=== PATIENT | female | born 1950 | race Caucasian/White ===

== ENCOUNTER 2018-12-12 15:59 | Emergency (ER) | payer OTHER ==
[~2018-12-12] VITALS: Ht 149.9 cm; Wt 59.0 kg
[2018-12-12 17:08] LABS: Urine WBC None Seen /hpf (0 - 5)
[2018-12-12 17:26] LABS: Urine Bacteria NONE SEEN /hpf (None Seen); Urine Blood Negative /uL (Negative); Urine Specific Gravity 1.005 (1.001-1.035)
[2018-12-12 17:34] LABS: Alcohol, Urine < 3.0 mg/dL (0-5); Amphetamine Screen, Urine NEGATIVE (NEGATIVE); Barbiturate Scree,Urine NEGATIVE (NEGATIVE); Benzodiazephine Screen, Urine NEGATIVE (NEGATIVE); Cannabinoid Screen, Urine NEGATIVE (NEGATIVE); Cocaine Screen, Urine NEGATIVE (NEGATIVE); Opiate Scree,Urine NEGATIVE (NEGATIVE); Phencyclidine Screen, Urine NEGATIVE (NEGATIVE)
[2018-12-12 17:54] LABS: Basophils # (auto) 0.1 uL; Basophils % (auto) 0.7 % (0.0-2.0); Eosinophils # (auto) 0 uL; Eosinophils % (auto) 0.2 % (0.0-7.0); Hematocrit 38.3 % (36.0-46.0); Hemoglobin 12.8 g/dL (12.2-16.2); Lymphocytes # (auto) 1.2 uL; Lymphocytes % (auto) 17.7 % (10.0-50.0); Mean Corpuscular Hemoglobin 28.1 pg (28.0-32.0); Mean Corpuscular Hgb Conc. 33.4 g/dL (32.0-36.0); Mean Corpuscular Volume 84.1 fL (80.0-100.0); Monocytes # (auto) 0.3 uL; Monocytes % (auto) 3.7 % (0.0-12.0); Neutrophils # (auto) 5.3 uL; Neutrophils % (auto) 77.7 % (37.0-80.0); Platelet Count (auto) 293 10^3/uL (140-450); Red Blood Cells 4.55 10^6/uL (4.0-5.20); Red Cell Distribution Width 14.8 % (11.8-14.3); White Blood Cell 6.9 10^3/uL (4.4-10.8)
[2018-12-12 18:09] LABS: INR 0.95 (0.9-1.15); Partial Thromboplastin Time 29.2 sec (23.64-32.05)
[2018-12-12 18:11] LABS: Alanine Aminotransferase 20 U/L (13-56); Albumin 4.1 g/dL (3.4-5.0); Anion Gap 6 (5-15); Aspartate Aminotransferase 23 U/L (15-37); BUN/Creatinine Ratio 16.2; Blood Alcohol < 3.0 mg/dL (0-5); Blood Urea Nitrogen 11 mg/dL (7-18); Calcium 9.4 mg/dL (8.5-10.1); Carbon Dioxide 28 mmol/L (21-32); Chloride 101 mmol/L (98-107); GFR African American 110 mL/min; GFR Non-African American 91 mL/min; Glucose 114 mg/dL (74-106); Potassium 3.8 mmol/L (3.5-5.1); Sodium 135 mmol/L (136-145)
[2018-12-12 18:15] LABS: Alkaline Phosphatase 70 U/L (45-117); Bilirubin, Total 0.4 mg/dL (0.2-1.0); Total Protein 7.7 g/dL (6.4-8.2)
[2018-12-12 23:00] VITALS: BP 106/61
== END 2018-12-13 00:55 | disposition home or self-care (01) ==
LOC: ER 15:59 → EDBD 15:59 → ER 12-13 00:55
DX: T59.91XA Toxic effect of unspecified gases, fumes and vapors, accidental (unintentional), initial encounter (principal); R55 Syncope and collapse; R42 Dizziness and giddiness; Z88.6 Allergy status to analgesic agent; Y92.9 Unspecified place or not applicable
CPT/HCPCS: 36415; 36600; 71045; 80053; 80307; 80320; 81001; 82805; 82962; 83880; 84484; 85025; 85610; 85730; 93005; 94761

== ENCOUNTER 2021-09-26 12:10 | Inpatient (IN) | payer OTHER ==
[~2021-09-26] VITALS: Ht 149.9 cm; Wt 65.1 kg
[2021-09-26] MEDS ORDERED: SODIUM CHLORIDE 0.9% 1,000 ML IVB ONE (12:30)
[2021-09-26] MEDS ORDERED: MIDAZOLAM HCL 2MG/2ML 2ml VIAL (1mg/ml) IV ONE (12:45)
[2021-09-26] MEDS ORDERED: DEXTROSE (50%) 50ML SYRG IV ONE (12:45)
[2021-09-26] MEDS ORDERED: DIGOXIN (250MCG/ML) 2 ML AMPULE IV ONE (12:45)
[2021-09-26] MEDS ORDERED: SODIUM CHLORIDE 0.9% 1,000 ML IV ONE (13:15)
[2021-09-26] MEDS ORDERED: PHENYLEPHRINE IV 250 ML IV ONE (13:15)
[2021-09-26 13:28] LABS: Basophils # (auto) 0.1 10 ^3/uL (0-0.2); Basophils % (auto) 1.3 % (0.0-2.0); Eosinophils # (auto) 0 10 ^3/uL (0-0.8); Eosinophils % (auto) 0.5 % (0.0-7.0); Hematocrit 28.5 % (36.0-46.0); Hemoglobin 9.3 g/dL (12.2-16.2); Lymphocytes # (auto) 1.8 10 ^3/uL (0.4-5.4); Lymphocytes % (auto) 25.5 % (10.0-50.0); Mean Corpuscular Hgb Conc. 32.7 g/dL (32.0-36.0); Mean Corpuscular Volume 82.8 fL (80.0-100.0); Monocytes # (auto) 0.2 10 ^3/uL (0-1.3); Monocytes % (auto) 3.5 % (0.0-12.0); Neutrophils # (auto) 4.8 10 ^3/uL (1.6-8.6); Neutrophils % (auto) 69.2 % (37.0-80.0); Nucleated Red Blood Cells % 0.1 %; Red Blood Cells 3.45 10^6/uL (4.0-5.20); White Blood Cell 6.9 10^3/uL (4.4-10.8)
[2021-09-26 13:42] LABS: INR 1.27 (0.9-1.15); Partial Thromboplastin Time 26.8 sec (23.6-33.0)
[2021-09-26 13:49] LABS: Potassium 3.4 mmol/L (3.5-5.1)
[2021-09-26 13:53] LABS: Albumin 2.6 g/dL (3.4-5.0); BUN/Creatinine Ratio 14.5; Calcium 7.8 mg/dL (8.5-10.1)
[2021-09-26 13:58] LABS: Bilirubin, Total 0.4 mg/dL (0.2-1.0); Total Protein 4.9 g/dL (6.4-8.2)
[2021-09-26] MEDS ORDERED: ENOXAPARIN SOD 100 MG/1 ML SYRINGE SC ONE (14:15)
[2021-09-26] MEDS ORDERED: NITROGLYCERIN 0.4 MG SL TAB SL PRN ×2 (14:30→16:00)
[2021-09-26] MEDS ORDERED: AMIODARONE HCL 200 MG TAB PO ONE (14:30)
[2021-09-26] MEDS ORDERED: POTASSIUM CHL 20 Meq TABLET PO ONE (14:30)
[2021-09-26] MEDS ORDERED: MORPHINE SULFATE INJECTION 2 MG/ML SYRG IV PRN ×2 (14:30→16:00)
[2021-09-26] MEDS ORDERED: ASPirin 81 mg TAB PO ONE (15:15)
[2021-09-26] MEDS ORDERED: ENOXAPARIN SOD 30 MG/0.3 ML SYRINGE SC ONE (15:15)
[2021-09-26] MEDS ORDERED: HYDROcodone-ACET 5/325MG TAB PO ONE (16:00)
[2021-09-26 16:11] LABS: Cholesterol 82 mg/dL (< 200)
[2021-09-26 16:14] LABS: HDL Cholesterol 37 mg/dL (40-59); LDL Cholesterol 38 mg/dL (< 100); Triglycerides 93 mg/dL (< 150)
[2021-09-26] MEDS ORDERED: OXYCODONE W/ ACETAMINOPHEN 5/325MG TABLET PO ONE (16:30)
[2021-09-26 20:00] VITALS: BP 109/58
[2021-09-26 20:33] VITALS: BP 109/58
[2021-09-26] MEDS ORDERED: PERCOT PO (21:04)
[2021-09-26] MEDS ORDERED: LEVO88TA4 PO (21:04)
[2021-09-26] MEDS: ACETAMINOPHEN 325 MG TAB PO PRN (21:30)
[2021-09-26] MEDS: AMIODARONE HCL 200 MG TAB PO SCH (21:30)
[2021-09-26 22:00] VITALS: BP 131/63
[2021-09-26 23:15] LABS: Magnesium 1.9 mg/dL (1.6-2.6); Phosphorus 3.6 mg/dL (2.5-4.90)
[2021-09-27 00:33] LABS: INR 1.22 (0.9-1.15); Partial Thromboplastin Time 30.5 sec (23.6-33.0)
[2021-09-27 05:00] VITALS: BP 128/66
[2021-09-27] MEDS: ACETAMINOPHEN 325 MG TAB PO PRN (05:28)
[2021-09-27] MEDS ORDERED: METOPROLOL SUCCINATE XL 50 MG TAB PO ONE (06:30)
[2021-09-27] MEDS ORDERED: ATORVASTATIN 20 MG TAB PO ONE (06:30)
[2021-09-27] MEDS ORDERED: ACETAMINOPHEN 325 MG TAB PO PRN (06:45)
[2021-09-27] MEDS ORDERED: hydrALAZINE HCL 20 MG/ML VL IV PRN (06:45)
[2021-09-27] MEDS ORDERED: FERROUS SULFATE 325mg EC TAB PO ONE (06:45)
[2021-09-27] MEDS ORDERED: LORazepam 0.5 MG TAB PO PRN (06:45)
[2021-09-27] MEDS ORDERED: PANTOPRAZOLE 40 MG/10 ML VIAL INJ IV ONE (06:45)
[2021-09-27] MEDS ORDERED: LACTULOSE 20Gm/30ML SOLN PO PRN (06:45)
[2021-09-27] MEDS ORDERED: POTASSIUM CHL 20 Meq TABLET PO ONE (06:45)
[2021-09-27] MEDS ORDERED: HYDROcodone-ACET 5/325MG TAB PO ONE (06:45)
[2021-09-27] MEDS ORDERED: ONDANSETRON HCL 4 MG/2 ML VIAL IV PRN (06:45)
[2021-09-27] MEDS ORDERED: MORPHINE SULFATE INJECTION 2 MG/ML SYRG IV PRN (06:45)
[2021-09-27] MEDS ORDERED: IPRATROPIUM BROM 0.5 MG/2.5ML INH SOL NEB ONE (06:45)
[2021-09-27] MEDS ORDERED: DOCUSATE SOD 100 MG CAP PO PRN (06:45)
[2021-09-27] MEDS ORDERED: IOHEXOL 350 MG/ML 100ML IJ ONE (06:46)
[2021-09-27 06:49] LABS: Basophils # (auto) 0 10 ^3/uL (0-0.2); Basophils % (auto) 0.6 % (0.0-2.0); Eosinophils # (auto) 0 10 ^3/uL (0-0.8); Eosinophils % (auto) 0.8 % (0.0-7.0); Hemoglobin 9.5 g/dL (12.2-16.2); Lymphocytes # (auto) 1.3 10 ^3/uL (0.4-5.4); Lymphocytes % (auto) 27.4 % (10.0-50.0); Mean Corpuscular Hemoglobin 27.8 pg (28.0-32.0); Mean Corpuscular Volume 81.8 fL (80.0-100.0); Monocytes # (auto) 0.3 10 ^3/uL (0-1.3); Monocytes % (auto) 6.5 % (0.0-12.0); Neutrophils % (auto) 64.7 % (37.0-80.0); Red Blood Cells 3.42 10^6/uL (4.0-5.20); Red Cell Distribution Width 16.9 % (11.8-14.3); White Blood Cell 4.7 10^3/uL (4.4-10.8)
[2021-09-27 06:52] LABS: INR 1.17 (0.9-1.15); Partial Thromboplastin Time 30.9 sec (23.6-33.0)
[2021-09-27] MEDS: LEVOTHYROXINE SODIUM 88 MCG TAB PO SCH (06:58)
[2021-09-27 07:03] LABS: % Iron Saturation 8.2 % (15-50)
[2021-09-27 07:08] LABS: Urine Bacteria FEW /hpf (None Seen); Urine Blood Negative /uL (Negative); Urine WBC 6 /hpf (0 - 5)
[2021-09-27 07:14] LABS: Alanine Aminotransferase 29 U/L (13-56); Albumin 2.9 g/dL (3.4-5.0); Alkaline Phosphatase 48 U/L (45-117); Aspartate Aminotransferase 51 U/L (15-37); Bilirubin, Total 0.3 mg/dL (0.2-1.0); Blood Urea Nitrogen 9 mg/dL (7-18); CRP High Sensitivity 0.28 mg/dL (< 0.3); Calcium 8.2 mg/dL (8.5-10.1); Carbon Dioxide 23 mmol/L (21-32); Cholesterol 85 mg/dL (< 200); Creatine Kinase IFCC 428 U/L (26-192); GFR African American 145 mL/min; GFR Non-African American 120 mL/min; Glucose 84 mg/dL (74-106); HDL Cholesterol 42 mg/dL (40-59); LDL Cholesterol 35 mg/dL (< 100); Lipase 82 U/L (73-393); Magnesium 2.1 mg/dL (1.6-2.6); Total Protein 5.5 g/dL (6.4-8.2); Triglycerides 52 mg/dL (< 150); Uric Acid 4.3 mg/dL (2.6-6.0)
[2021-09-27 07:24] LABS: Alcohol, Urine < 3.0 mg/dL (0-10); Amphetamine Screen, Urine NEGATIVE (NEGATIVE); Barbiturate Scree,Urine NEGATIVE (NEGATIVE); Benzodiazephine Screen, Urine POSITIVE (NEGATIVE); Cannabinoid Screen, Urine NEGATIVE (NEGATIVE); Cocaine Screen, Urine NEGATIVE (NEGATIVE); Opiate Scree,Urine NEGATIVE (NEGATIVE); Phencyclidine Screen, Urine NEGATIVE (NEGATIVE); Protein, Urine 9.9 mg/dL (0.0-11.9)
[2021-09-27 07:30] LABS: Sodium 139 mmol/L (136-145)
[2021-09-27 07:31] LABS: Anion Gap 5 (5-15); Chloride 111 mmol/L (98-107); Potassium 4.1 mmol/L (3.5-5.1)
[2021-09-27] MEDS ORDERED: ADENOSINE 53 MG in GIVE UN-DILUTED 0 ML IV STA (07:41)
[2021-09-27] MEDS: AMIODARONE HCL 200 MG TAB PO SCH ×2 (10:00→21:48)
[2021-09-27] MEDS: CHOLECALCIFEROL (VITD3) 2,000 UNIT CAP/TAB PO SCH (10:00)
[2021-09-27] MEDS ORDERED: ENOXAPARIN SOD 30 MG/0.3 ML SYRINGE SC SCH (10:00)
[2021-09-27] MEDS: ENOXAPARIN SOD 60 MG/0.6 ML SYRINGE SC SCH ×2 (10:00→21:48)
[2021-09-27] MEDS ORDERED: ASPirin 81 mg TAB PO SCH (10:00)
[2021-09-27] MEDS ORDERED: POTASSIUM CHL 20 Meq TABLET PO SCH (10:00)
[2021-09-27] MEDS: PANTOPRAZOLE 40 MG/10 ML VIAL INJ IV SCH (10:00)
[2021-09-27] MEDS: FERROUS SULFATE 325mg EC TAB PO SCH ×2 (12:00→19:23)
[2021-09-27] MEDS ORDERED: HYDROcodone-ACET 5/325MG TAB PO PRN (12:00)
[2021-09-27] MEDS: IPRATROPIUM BROM 0.5 MG/2.5ML INH SOL NEB SCH ×2 (12:00→15:03)
[2021-09-27 13:00] VITALS: BP 126/62
[2021-09-27] MEDS ORDERED: cefTRIAXone 1GM/50ML D5W 50 ML IV ONE (13:30)
[2021-09-27] MEDS: HYDROcodone-ACET 5/325MG TAB PO PRN ×2 (14:55→17:43)
[2021-09-27 15:58] VITALS: BP 126/62
[2021-09-27 17:00] VITALS: BP 115/63
[2021-09-27] MEDS: SODIUM CHLORIDE 0.9% 1,000 ML IV SCH (20:30)
[2021-09-27 22:00] VITALS: BP 105/54
[2021-09-27] MEDS ORDERED: ATORVASTATIN 20 MG TAB PO SCH ×2 (22:00)
[2021-09-28] MEDS: HYDROcodone-ACET 5/325MG TAB PO PRN ×3 (01:42→17:15)
[2021-09-28 05:00] VITALS: BP 112/59
[2021-09-28 05:33] LABS: Basophils # (auto) 0 10 ^3/uL (0-0.2); Eosinophils # (auto) 0.1 10 ^3/uL (0-0.8); Eosinophils % (auto) 2.1 % (0.0-7.0); Hematocrit 25.7 % (36.0-46.0); Hemoglobin 8.6 g/dL (12.2-16.2); Lymphocytes # (auto) 2.1 10 ^3/uL (0.4-5.4); Lymphocytes % (auto) 45.1 % (10.0-50.0); Mean Corpuscular Hemoglobin 27.7 pg (28.0-32.0); Mean Corpuscular Hgb Conc. 33.7 g/dL (32.0-36.0); Mean Corpuscular Volume 82.4 fL (80.0-100.0); Monocytes # (auto) 0.4 10 ^3/uL (0-1.3); Monocytes % (auto) 9.5 % (0.0-12.0); Neutrophils # (auto) 1.9 10 ^3/uL (1.6-8.6); Neutrophils % (auto) 42.3 % (37.0-80.0); Nucleated Red Blood Cells % 0.1 %; Red Blood Cells 3.11 10^6/uL (4.0-5.20); Red Cell Distribution Width 17.2 % (11.8-14.3); White Blood Cell 4.6 10^3/uL (4.4-10.8)
[2021-09-28 05:45] LABS: Albumin 2.7 g/dL (3.4-5.0); BUN/Creatinine Ratio 14.8; Bilirubin, Total 0.2 mg/dL (0.2-1.0); Calcium 7.8 mg/dL (8.5-10.1); Magnesium 2.2 mg/dL (1.6-2.6); Total Protein 5.2 g/dL (6.4-8.2)
[2021-09-28 06:17] LABS: Potassium 4.1 mmol/L (3.5-5.1)
[2021-09-28] MEDS: LEVOTHYROXINE SODIUM 88 MCG TAB PO SCH (06:42)
[2021-09-28] MEDS: FERROUS SULFATE 325mg EC TAB PO SCH ×3 (08:40→17:50)
[2021-09-28 09:00] VITALS: BP 126/73
[2021-09-28] MEDS ORDERED: cefTRIAXone 1GM/50ML D5W 50 ML IV SCH (09:00)
[2021-09-28] MEDS ORDERED: ENOXAPARIN SOD 30 MG/0.3 ML SYRINGE SC SCH (10:00)
[2021-09-28] MEDS ORDERED: METOPROLOL SUCCINATE XL 50 MG TAB PO SCH (10:00)
[2021-09-28] MEDS ORDERED: METOPROLOL TARTRATE 25 MG TAB PO SCH (10:00)
[2021-09-28] MEDS: AMIODARONE HCL 200 MG TAB PO SCH (10:13)
[2021-09-28] MEDS: CHOLECALCIFEROL (VITD3) 2,000 UNIT CAP/TAB PO SCH (10:14)
[2021-09-28] MEDS: PANTOPRAZOLE 40 MG/10 ML VIAL INJ IV SCH (10:16)
[2021-09-28] MEDS ORDERED: SODIUM FERR GLUC 62.5MG/5ML 125 MG in SODIUM CHL 0.9% 100 ML IV ONE (10:30)
[2021-09-28] MEDS: SODIUM CHLORIDE 0.9% 1,000 ML IV SCH ×2 (12:51→16:17)
[2021-09-28 13:00] VITALS: BP 108/67
[2021-09-28] MEDS: ACETAMINOPHEN 325 MG TAB PO PRN (13:50)
[2021-09-28 16:59] VITALS: BP 117/72
[2021-09-28] MEDS ORDERED: PANTOPRAZOLE 40 MG/10 ML VIAL INJ IV SCH (22:00)
== END 2021-09-28 18:45 | disposition short-term general hospital (02) | DRG 280 ==
LOC: ER 12:10 → EDBD 12:10 → TELE 15:55 → TELE-CENTR 17:18
PROVIDERS: ADMIT Hospitalist; ATTEND Internal Medicine
PROC: 5A2204Z Restoration of Cardiac Rhythm, Single (ICD-10-PCS; principal; 2021-09-26)
DX: I21.4 Non-ST elevation (NSTEMI) myocardial infarction (principal); R57.0 Cardiogenic shock; E43 Unspecified severe protein-calorie malnutrition; I50.33 Acute on chronic diastolic (congestive) heart failure; K92.2 Gastrointestinal hemorrhage, unspecified; N39.0 Urinary tract infection, site not specified; I47.1 Supraventricular tachycardia; I48.0 Paroxysmal atrial fibrillation; D64.9 Anemia, unspecified; E87.6 Hypokalemia; E03.9 Hypothyroidism, unspecified; E78.5 Hyperlipidemia, unspecified; M19.90 Unspecified osteoarthritis, unspecified site; Z80.9 Family history of malignant neoplasm, unspecified; Z98.84 Bariatric surgery status; Z88.5 Allergy status to narcotic agent; Z98.51 Tubal ligation status; Z20.822 Contact with and (suspected) exposure to COVID-19
CPT/HCPCS: 36415; 71045; 78452; 80053; 80061; 80307; 81001; 82550; 82728; 82962; 83036; 83540; 83550; 83615; 83690; 83735; 83880; 84100; 84156; 84443; 84484; 84550; 85025; 85379; 85610; 85652; 85730; 86141; 87040; 87086; 93005; 93017; 93306; 93886; 96361; 96365; 96372; 96375; 97163; 99291; 99292; C9113; G0378; J0153; J0696; J2250